=== PATIENT | male | born 1935 | race African-American/Black ===

== ENCOUNTER 2019-12-05 11:57 | Inpatient (IN) | payer MEDICARE, MEDICAID ==
[~2019-12-05] VITALS: Ht 188 cm; Wt 79.8 kg
[2019-12-05 13:05] LABS: HEMATOCRIT. 35.6 % (42.0-52.0); MEAN CORPUSCULAR HEMOGLOBIN 30.2 pg (28.0-32.0); MEAN CORPUSCULAR VOLUME 89.8 fL (80.0-94.0); MEAN PLATELET VOLUME 8.4 fl (7.4-10.4); PLATELET 162 x1000/uL (130-400); RED BLOOD CELL COUNT 3.97 mill/uL (4.7-6.1); RED CELL DISTRIBUTION WIDTH 14.6 % (11.6-14.6)
[2019-12-05 13:12] LABS: CHLORIDE 113 mEq/L (98-107)
[2019-12-05 13:28] LABS: INR 1.4; PROTHROMBIN TIME 14.6 sec (9.6-11.0)
[2019-12-05 14:00] LABS: PLATELET ESTIMATE NORMAL
[2019-12-05] MEDS ORDERED: SODIUM CHLORIDE 0.9% 1000ML BAG (SEPSIS BOLUS) IV ONE (14:15)
[2019-12-05] MEDS ORDERED: VANCOMYCIN 1 G PREMIX 200 ML IV ONE (14:15)
[2019-12-05] MEDS ORDERED: POTASSIUM CHLORIDE 20MEQ TABLET SR PO ONE (14:15)
[2019-12-05] MEDS ORDERED: PIPERACILLIN/TAZ 3.375G PREMIX 50 ML IV ONE (14:15)
[2019-12-05 14:44] LABS: CLARITY URINE TURBID (CLEAR); COLOR URINE DK YELLOW (YELLOW); KETONES URINE TRACE (NEGATIVE); LEUKOCYTE ESTERASE URINE 3+ (NEGATIVE); NITRITE URINE NEGATIVE (NEGATIVE); OCCULT BLOOD URINE 3+ (NEGATIVE); PH URINE 5.5 (4.5-8.0); PROTEIN URINE 3+ (NEGATIVE); SPECIFIC GRAVITY URINE 1.018 (1.005-1.030)
[2019-12-05 17:34] VITALS: BP 114/80
[2019-12-05 18:00] VITALS: BP 114/80
[2019-12-05] MEDS ORDERED: DEXTROSE 50% WATER 50ML SYRINGE IV PRN (19:00)
[2019-12-05 20:00] VITALS: BP 114/80
[2019-12-05] MEDS ORDERED: LEVOFLOXACIN 500MG PREMIX 100 ML IV SCH (20:00)
[2019-12-05] MEDS ORDERED: IPRATROPIUM/ALBUTEROL 0.5-3(2.5)MG/3ML NEB HHN SCH (20:00)
[2019-12-05] MEDS: BLOOD SUGAR DIAGNOSTIC STRIP TEST SCH (21:00)
[2019-12-05] MEDS: INSULIN LISPRO 100 UNITS/ML SUBCUT SCH (21:00)
[2019-12-05] MEDS: INSULIN GLARGINE UD 100 UNITS/ML SYR SUBCUT SCH (22:00)
[2019-12-06] VITALS (11 sets, daily range): BP systolic 87–123; BP diastolic 58–78
[2019-12-06] MEDS ORDERED: SODIUM CHLORIDE 0.45% 250 ML IV NR (00:30)
[2019-12-06] MEDS: SODIUM CHLORIDE 0.45% 1,000 ML IV SCH ×3 (02:52→21:03)
[2019-12-06] MEDS: BLOOD SUGAR DIAGNOSTIC STRIP TEST SCH ×4 (06:20→21:04)
[2019-12-06] MEDS: INSULIN LISPRO 100 UNITS/ML SUBCUT SCH ×4 (07:20→21:00)
[2019-12-06 07:57] LABS: HEMATOCRIT. 38.9 % (42.0-52.0); HEMOGLOBIN. 12.9 g/dL (14.0-18.0); MEAN CORPUSCULAR HEMOGLOBIN 29.8 pg (28.0-32.0); MEAN CORPUSCULAR VOLUME 90.1 fL (80.0-94.0); MEAN PLATELET VOLUME 9.2 fl (7.4-10.4); PLATELET 137 x1000/uL (130-400); RED BLOOD CELL COUNT 4.32 mill/uL (4.7-6.1); RED CELL DISTRIBUTION WIDTH 14.8 % (11.6-14.6)
[2019-12-06] MEDS: IPRATROPIUM/ALBUTEROL 0.5-3(2.5)MG/3ML NEB HHN SCH ×4 (08:30→21:40)
[2019-12-06] MEDS ORDERED: FUROSEMIDE 40MG/4ML VIAL IVP SCH (09:00)
[2019-12-06] MEDS ORDERED: POTASSIUM CHLORIDE 20MEQ TABLET SR PO SCH (09:00)
[2019-12-06] MEDS ORDERED: GENTAMICIN 80MG PREMIX 100 ML IV SCH (10:15)
[2019-12-06] MEDS: ENOXAPARIN 30MG/0.3ML SYR SUBCUT SCH (11:24)
[2019-12-06] MEDS ORDERED: GENTAMICIN 100MG PREMIX 50 ML IV SCH (12:00)
[2019-12-06] MEDS: SIMETHICONE 80MG TABLET CHEW PO SCH ×2 (12:11→16:19)
[2019-12-06 12:56] LABS: PLATELET ESTIMATE NORMAL
[2019-12-06] MEDS: LEVOFLOXACIN 250MG PREMIX 50 ML IV SCH (21:03)
[2019-12-06] MEDS: INSULIN GLARGINE UD 100 UNITS/ML SYR SUBCUT SCH (21:05)
[2019-12-07] VITALS (12 sets, daily range): BP systolic 103–130; BP diastolic 53–78
[2019-12-07] MEDS: INSULIN LISPRO 100 UNITS/ML SUBCUT SCH ×4 (06:00→21:00)
[2019-12-07] MEDS: BLOOD SUGAR DIAGNOSTIC STRIP TEST SCH ×4 (06:00→21:00)
[2019-12-07 07:02] LABS: GENTAMICIN RANDOM 1.9 ug/mL
[2019-12-07] MEDS: ENOXAPARIN 30MG/0.3ML SYR SUBCUT SCH (09:57)
[2019-12-07] MEDS: SIMETHICONE 80MG TABLET CHEW PO SCH ×3 (09:57→18:18)
[2019-12-07] MEDS ORDERED: BISMUTH SUBSALICYLATE 262 MG/15 ML-120ML BOTTLE PO NR (10:00)
[2019-12-07 10:27] LABS: HEMATOCRIT. 34.4 % (42.0-52.0); HEMOGLOBIN. 11.5 g/dL (14.0-18.0); MEAN CORPUSCULAR HEMOGLOBIN 29.8 pg (28.0-32.0); MEAN CORPUSCULAR VOLUME 89.4 fL (80.0-94.0); MEAN PLATELET VOLUME 9.3 fl (7.4-10.4); PLATELET 125 x1000/uL (130-400); RED BLOOD CELL COUNT 3.85 mill/uL (4.7-6.1); RED CELL DISTRIBUTION WIDTH 14.9 % (11.6-14.6)
[2019-12-07] MEDS ORDERED: GENTAMICIN 120MG PREMIX 100 ML IV SCH (12:00)
[2019-12-07] MEDS: IPRATROPIUM/ALBUTEROL 0.5-3(2.5)MG/3ML NEB HHN SCH ×3 (13:10→21:14)
[2019-12-07] MEDS: SODIUM CHLORIDE 0.45% 1,000 ML IV SCH ×2 (14:26→21:43)
[2019-12-07 14:33] LABS: PLATELET ESTIMATE SLIGHTLY DECREASED
[2019-12-07] MEDS ORDERED: BISMUTH SUBSALICYLATE 262 MG/15 ML-120ML BOTTLE PO PRN (20:00)
[2019-12-07] MEDS: LEVOFLOXACIN 250MG PREMIX 50 ML IV SCH (21:44)
[2019-12-07] MEDS: INSULIN GLARGINE UD 100 UNITS/ML SYR SUBCUT SCH (22:00)
[2019-12-08] VITALS (12 sets, daily range): BP systolic 118–164; BP diastolic 68–85
[2019-12-08] MEDS: IPRATROPIUM/ALBUTEROL 0.5-3(2.5)MG/3ML NEB HHN SCH ×6 (00:03→21:53)
[2019-12-08] MEDS: SODIUM CHLORIDE 0.45% 1,000 ML IV SCH ×2 (04:29→09:00)
[2019-12-08] MEDS: BLOOD SUGAR DIAGNOSTIC STRIP TEST SCH ×4 (06:50→20:51)
[2019-12-08] MEDS: INSULIN LISPRO 100 UNITS/ML SUBCUT SCH ×4 (06:58→21:09)
[2019-12-08] MEDS: ACETAMINOPHEN 650MG/20.3ML UDC PO PRN (06:59)
[2019-12-08] MEDS: SIMETHICONE 80MG TABLET CHEW PO SCH ×3 (08:59→17:13)
[2019-12-08] MEDS: ENOXAPARIN 30MG/0.3ML SYR SUBCUT SCH (08:59)
[2019-12-08] MEDS: CEFTRIAXONE 2 G in DEXTROSE 5% WATER 50 ML IV SCH (17:13)
[2019-12-08 18:06] LABS: HEMATOCRIT. 53.1 % (42.0-52.0); HEMOGLOBIN. 17.1 g/dL (14.0-18.0); MEAN CORPUSCULAR HEMOGLOBIN 29.1 pg (28.0-32.0); MEAN CORPUSCULAR VOLUME 90.3 fL (80.0-94.0); MEAN PLATELET VOLUME 8.5 fl (7.4-10.4); PLATELET 88 x1000/uL (130-400); RED BLOOD CELL COUNT 5.88 mill/uL (4.7-6.1); RED CELL DISTRIBUTION WIDTH 15.3 % (11.6-14.6)
[2019-12-08] MEDS ORDERED: LOPERAMIDE HCL 2MG CAPSULE PO NR (19:15)
[2019-12-08 19:17] LABS: PLATELET ESTIMATE DECREASED
[2019-12-08] MEDS ORDERED: MAGNESIUM/ALUMINUM HYDROXIDE/SIMETHICONE 30ML UDC PO PRN (19:45)
[2019-12-08] MEDS: FAMOTIDINE 20MG/2ML VIAL IV SCH (21:14)
[2019-12-08] MEDS: INSULIN GLARGINE UD 100 UNITS/ML SYR SUBCUT SCH (22:30)
[2019-12-09] VITALS (11 sets, daily range): BP systolic 129–156; BP diastolic 64–85
[2019-12-09] MEDS: SODIUM CHLORIDE 0.45% 1,000 ML IV SCH ×3 (00:46→21:01)
[2019-12-09] MEDS: BLOOD SUGAR DIAGNOSTIC STRIP TEST SCH ×4 (05:58→21:01)
[2019-12-09] MEDS: INSULIN LISPRO 100 UNITS/ML SUBCUT SCH ×4 (06:38→20:58)
[2019-12-09] MEDS: IPRATROPIUM/ALBUTEROL 0.5-3(2.5)MG/3ML NEB HHN SCH ×3 (08:42→16:57)
[2019-12-09] MEDS: ENOXAPARIN 30MG/0.3ML SYR SUBCUT SCH (11:10)
[2019-12-09] MEDS: SIMETHICONE 80MG TABLET CHEW PO SCH ×3 (11:10→16:39)
[2019-12-09] MEDS: ACETAMINOPHEN 650MG/20.3ML UDC PO PRN (13:57)
[2019-12-09] MEDS: CEFTRIAXONE 2 G in DEXTROSE 5% WATER 50 ML IV SCH (16:39)
[2019-12-09] MEDS ORDERED: IBUPROFEN 400MG TABLET PO PRN (20:00)
[2019-12-09] MEDS: FAMOTIDINE 20MG/2ML VIAL IV SCH (20:59)
[2019-12-09] MEDS: ACETAMINOPHEN WITH CODEINE 300/30MG TABLET PO PRN (21:00)
[2019-12-09] MEDS: INSULIN GLARGINE UD 100 UNITS/ML SYR SUBCUT SCH (22:49)
[2019-12-10] VITALS (12 sets, daily range): BP systolic 126–156; BP diastolic 61–89
[2019-12-10] MEDS: BLOOD SUGAR DIAGNOSTIC STRIP TEST SCH ×4 (05:57→20:58)
[2019-12-10] MEDS: SODIUM CHLORIDE 0.45% 1,000 ML IV SCH ×2 (05:57→15:32)
[2019-12-10] MEDS: ACETAMINOPHEN 650MG/20.3ML UDC PO PRN (06:26)
[2019-12-10 07:10] LABS: HEMATOCRIT. 35.4 % (42.0-52.0); HEMOGLOBIN. 11.8 g/dL (14.0-18.0); MEAN CORPUSCULAR HEMOGLOBIN 29.2 pg (28.0-32.0); MEAN CORPUSCULAR VOLUME 87.5 fL (80.0-94.0); MEAN PLATELET VOLUME 9.3 fl (7.4-10.4); PLATELET 149 x1000/uL (130-400); RED BLOOD CELL COUNT 4.04 mill/uL (4.7-6.1); RED CELL DISTRIBUTION WIDTH 14.9 % (11.6-14.6)
[2019-12-10] MEDS: INSULIN LISPRO 100 UNITS/ML SUBCUT SCH ×4 (08:07→20:58)
[2019-12-10] MEDS: SIMETHICONE 80MG TABLET CHEW PO SCH ×3 (08:13→18:42)
[2019-12-10] MEDS: ENOXAPARIN 30MG/0.3ML SYR SUBCUT SCH (08:14)
[2019-12-10] MEDS: IPRATROPIUM/ALBUTEROL 0.5-3(2.5)MG/3ML NEB HHN SCH ×4 (08:56→21:42)
[2019-12-10] MEDS: DIPHENHYDRAMINE 25MG CAPSULE PO PRN (15:31)
[2019-12-10] MEDS: CEFTRIAXONE 2 G in DEXTROSE 5% WATER 50 ML IV SCH (15:32)
[2019-12-10] MEDS ORDERED: METHYLPREDNISOLONE ACETATE 40MG/ML VIAL IM NR (16:14)
[2019-12-10] MEDS ORDERED: LIDOCAINE HCL 1% 20ML VIAL (Pyxis) INJ INFIL NR (16:15)
[2019-12-10 17:54] LABS: HEMATOCRIT. 37.3 % (42.0-52.0); HEMOGLOBIN. 12.3 g/dL (14.0-18.0); MEAN CORPUSCULAR HEMOGLOBIN 29.3 pg (28.0-32.0); MEAN CORPUSCULAR VOLUME 88.5 fL (80.0-94.0); MEAN PLATELET VOLUME 9.3 fl (7.4-10.4); PLATELET 162 x1000/uL (130-400); RED BLOOD CELL COUNT 4.21 mill/uL (4.7-6.1); RED CELL DISTRIBUTION WIDTH 15.1 % (11.6-14.6)
[2019-12-10] MEDS: FAMOTIDINE 20MG/2ML VIAL IV SCH (20:56)
[2019-12-10] MEDS: ACETAMINOPHEN WITH CODEINE 300/30MG TABLET PO PRN (20:57)
[2019-12-10] MEDS: INSULIN GLARGINE UD 100 UNITS/ML SYR SUBCUT SCH (20:58)
[2019-12-11] VITALS (12 sets, daily range): BP systolic 122–153; BP diastolic 59–82
[2019-12-11] MEDS: DIPHENHYDRAMINE 25MG CAPSULE PO PRN ×2 (01:17→08:59)
[2019-12-11] MEDS: SODIUM CHLORIDE 0.45% 1,000 ML IV SCH ×3 (01:18→21:06)
[2019-12-11] MEDS: BLOOD SUGAR DIAGNOSTIC STRIP TEST SCH ×4 (06:17→21:06)
[2019-12-11] MEDS: INSULIN LISPRO 100 UNITS/ML SUBCUT SCH ×4 (07:20→21:06)
[2019-12-11 08:05] LABS: PLATELET ESTIMATE NORMAL
[2019-12-11 08:26] LABS: PLATELET ESTIMATE NORMAL
[2019-12-11] MEDS: IPRATROPIUM/ALBUTEROL 0.5-3(2.5)MG/3ML NEB HHN SCH ×4 (08:35→21:21)
[2019-12-11] MEDS: SIMETHICONE 80MG TABLET CHEW PO SCH ×3 (08:59→16:52)
[2019-12-11] MEDS: ENOXAPARIN 30MG/0.3ML SYR SUBCUT SCH (08:59)
[2019-12-11 15:58] LABS: HEMATOCRIT. 37.5 % (42.0-52.0); HEMOGLOBIN. 12.5 g/dL (14.0-18.0); MEAN CORPUSCULAR HEMOGLOBIN 29.4 pg (28.0-32.0); MEAN PLATELET VOLUME 9.6 fl (7.4-10.4); PLATELET 152 x1000/uL (130-400); RED BLOOD CELL COUNT 4.26 mill/uL (4.7-6.1); RED CELL DISTRIBUTION WIDTH 15.2 % (11.6-14.6)
[2019-12-11] MEDS: COLCHICINE 0.6MG TABLET PO SCH (16:49)
[2019-12-11] MEDS: CEFTRIAXONE 2 G in DEXTROSE 5% WATER 50 ML IV SCH (16:49)
[2019-12-11] MEDS: CELECOXIB 100MG CAPSULE PO SCH (17:35)
[2019-12-11] MEDS: FAMOTIDINE 20MG/2ML VIAL IV SCH (21:05)
[2019-12-11] MEDS: INSULIN GLARGINE UD 100 UNITS/ML SYR SUBCUT SCH (21:07)
[2019-12-11 23:32] LABS: PLATELET ESTIMATE NORMAL
[2019-12-12] VITALS (12 sets, daily range): BP systolic 124–154; BP diastolic 50–91
[2019-12-12 06:18] LABS: HEMATOCRIT. 33.1 % (42.0-52.0); HEMOGLOBIN. 11.2 g/dL (14.0-18.0); MEAN CORPUSCULAR HEMOGLOBIN 29.4 pg (28.0-32.0); MEAN CORPUSCULAR VOLUME 87.4 fL (80.0-94.0); MEAN PLATELET VOLUME 8.6 fl (7.4-10.4); PLATELET 179 x1000/uL (130-400); RED BLOOD CELL COUNT 3.79 mill/uL (4.7-6.1); RED CELL DISTRIBUTION WIDTH 14.6 % (11.6-14.6)
[2019-12-12 06:37] LABS: CHLORIDE 111 mEq/L (98-107)
[2019-12-12] MEDS: BLOOD SUGAR DIAGNOSTIC STRIP TEST SCH ×4 (06:46→21:45)
[2019-12-12] MEDS: IPRATROPIUM/ALBUTEROL 0.5-3(2.5)MG/3ML NEB HHN SCH ×4 (09:25→20:53)
[2019-12-12] MEDS: ENOXAPARIN 30MG/0.3ML SYR SUBCUT SCH (10:31)
[2019-12-12] MEDS: COLCHICINE 0.6MG TABLET PO SCH (10:31)
[2019-12-12] MEDS: CELECOXIB 100MG CAPSULE PO SCH ×2 (10:31→16:41)
[2019-12-12] MEDS: SIMETHICONE 80MG TABLET CHEW PO SCH ×3 (10:31→19:59)
[2019-12-12] MEDS: INSULIN LISPRO 100 UNITS/ML SUBCUT SCH ×4 (10:34→21:52)
[2019-12-12] MEDS: SODIUM CHLORIDE 0.45% 1,000 ML IV SCH ×2 (10:36→19:59)
[2019-12-12 13:24] LABS: PLATELET ESTIMATE NORMAL
[2019-12-12] MEDS: CEFTRIAXONE 2 G in DEXTROSE 5% WATER 50 ML IV SCH (16:37)
[2019-12-12] MEDS: FAMOTIDINE 20MG/2ML VIAL IV SCH (21:40)
[2019-12-12] MEDS: INSULIN GLARGINE UD 100 UNITS/ML SYR SUBCUT SCH (21:53)
[2019-12-13] VITALS (12 sets, daily range): BP systolic 142–176; BP diastolic 58–103
[2019-12-13] MEDS ORDERED: CLONIDINE 0.1MG TABLET PO PRN (04:00)
[2019-12-13] MEDS: BLOOD SUGAR DIAGNOSTIC STRIP TEST SCH ×2 (05:46→12:16)
[2019-12-13] MEDS: SODIUM CHLORIDE 0.45% 1,000 ML IV SCH (05:47)
[2019-12-13] MEDS: INSULIN LISPRO 100 UNITS/ML SUBCUT SCH ×2 (07:20→12:39)
[2019-12-13] MEDS: IPRATROPIUM/ALBUTEROL 0.5-3(2.5)MG/3ML NEB HHN SCH ×2 (07:40→12:31)
[2019-12-13 09:06] LABS: ANGIOTENSION CONVERTING ENZYME 33 U/L (14-82)
[2019-12-13] MEDS: CELECOXIB 100MG CAPSULE PO SCH (09:52)
[2019-12-13] MEDS: SIMETHICONE 80MG TABLET CHEW PO SCH (09:52)
[2019-12-13] MEDS: COLCHICINE 0.6MG TABLET PO SCH (09:52)
[2019-12-13] MEDS: ENOXAPARIN 30MG/0.3ML SYR SUBCUT SCH (09:53)
[2019-12-13] MEDS ORDERED: LEVOFLOXACIN 500MG TABLET PO SCH (11:00)
[2019-12-13 17:06] LABS: ANA IFA Negative (.)
[2019-12-15] MEDS ORDERED: COLCHICINE 0.6MG TABLET PO SCH (09:00)
[2019-12-15] MEDS ORDERED: CELECOXIB 100MG CAPSULE PO SCH (09:00)
== END 2019-12-13 16:07 | disposition home or self-care (01) | DRG 871 ==
LOC: ER 11:57 → 3WST 14:50 → EDBEDREQ 15:00 → ENRESERV 15:03
PROVIDERS: ADMIT Specialist; ATTEND Specialist
PROC: 0S9D3ZZ Drainage of Left Knee Joint, Percutaneous Approach (ICD-10-PCS; principal; 2019-12-10)
PROC: 3E0U33Z Introduction of Anti-inflammatory into Joints, Percutaneous Approach (ICD-10-PCS; 2019-12-12)
PROC: 3E0U3BZ Introduction of Anesthetic Agent into Joints, Percutaneous Approach (ICD-10-PCS; 2019-12-12)
DX: A41.51 Sepsis due to Escherichia coli [E. coli] (principal); N17.0 Acute kidney failure with tubular necrosis; N39.0 Urinary tract infection, site not specified; G93.40 Encephalopathy, unspecified; D68.9 Coagulation defect, unspecified; E44.1 Mild protein-calorie malnutrition; J44.9 Chronic obstructive pulmonary disease, unspecified; E11.9 Type 2 diabetes mellitus without complications; E78.5 Hyperlipidemia, unspecified; R14.0 Abdominal distension (gaseous); J30.9 Allergic rhinitis, unspecified; I49.5 Sick sinus syndrome; K21.0 Gastro-esophageal reflux disease with esophagitis; E11.22 Type 2 diabetes mellitus with diabetic chronic kidney disease; E11.65 Type 2 diabetes mellitus with hyperglycemia; I13.10 Hypertensive heart and chronic kidney disease without heart failure, with stage 1 through stage 4 chronic kidney disease, or unspecified chronic kidney disease; K52.9 Noninfective gastroenteritis and colitis, unspecified; M11.262 Other chondrocalcinosis, left knee; N18.3 Chronic kidney disease, stage 3 (moderate); M11.862 Other specified crystal arthropathies, left knee; N40.0 Benign prostatic hyperplasia without lower urinary tract symptoms; R74.0 Nonspecific elevation of levels of transaminase and lactic acid dehydrogenase [LDH]; R91.1 Solitary pulmonary nodule; M19.90 Unspecified osteoarthritis, unspecified site; M51.37 Other intervertebral disc degeneration, lumbosacral region; Z95.0 Presence of cardiac pacemaker
CPT/HCPCS: 36415; 71045; 73562; 74018; 74176; 80048; 80053; 80061; 80076; 80170; 81003; 82164; 82962; 83036; 83605; 84145; 84550; 85025; 86256; 86431; 87077; 87186; 87493; 89060; 93005; 94640; 97116; 97162; 97166; 97530; 97535; 99291; J0696; J1030; J1580; J1650; J1815; J1956; J2543; J3370; J3490; J7030; J7060; Q0163

== ENCOUNTER 2020-12-17 10:39 | Inpatient (IN) | payer MEDICARE, MEDICAID ==
[~2020-12-17] VITALS: Ht 180.3 cm; Wt 94.8 kg
[2020-12-17] VITALS (24 sets, daily range): BP systolic 111–152; BP diastolic 43–75
[2020-12-17] MEDS ORDERED: LABETALOL 5MG/ML SYR 20 MG/4 ML SYRINGE IV ONE ×4 (11:00→11:30)
[2020-12-17] MEDS ORDERED: DEXAMETHASONE 10 MG/ML VIAL IV ONE (11:00)
[2020-12-17] MEDS ORDERED: PROPOFOL 10MG/ML 100ML 100 ML IV ONE ×2 (11:00→17:38)
[2020-12-17] MEDS ORDERED: SUCCINYLCHOLINE CHLORIDE 200MG/10ML IV ONE (11:00)
[2020-12-17] MEDS ORDERED: MANNITOL 20% (20GM/100ML) BAG 500ML PREMIX IV ONE ×2 (11:00→11:15)
[2020-12-17] MEDS ORDERED: ETOMIDATE 2MG/ML 10ML VIAL IV ONE ×2 (11:00→13:12)
[2020-12-17] MEDS ORDERED: LIDOCAINE HCL/EPINEPHRINE 1%-EPI 1:100,000 20 ML VIAL ONE ×2 (11:13→11:14)
[2020-12-17] MEDS ORDERED: THROMBIN (BOVINE) 5000 UNITS/VIAL TOP ONE (11:14)
[2020-12-17] MEDS ORDERED: BACITRACIN 15GM TUBE TOP ONE (11:14)
[2020-12-17] MEDS ORDERED: GENTAMICIN SULF 40MG/ML 2ML VIAL ONE (11:14)
[2020-12-17] MEDS ORDERED: LACTATED RINGERS 4,000 ML IV ONE (11:14)
[2020-12-17] MEDS ORDERED: MORPHINE SULFATE 4 MG/ML CPJ (NOT FOR IM USE) IV PRN (11:15)
[2020-12-17] MEDS ORDERED: MANNITOL 20% 250 ML IV NR (11:15)
[2020-12-17] MEDS ORDERED: MANNITOL 20% 500 ML IV NR (11:15)
[2020-12-17] MEDS ORDERED: NICARDIPINE 100 MG in SODIUM CHLORIDE 0.9% 60 ML IV PRN (11:15)
[2020-12-17] MEDS ORDERED: LABETALOL HCL 100 MG in DEXT 5% WATER 80 ML IV STA (11:19)
[2020-12-17 11:38] LABS: BG BASE EXCESS -3.8 mmol/L (-2.0-2.0); BG CARBOXYHEMOGLOBIN 0.4 % (0.5-1.5); BG DEOXYHEMOGLOBIN 0.8 % (0.0-5.0); BG FRACTION INSPIRED OXYGEN 40; BG METHEMOGLOBIN 0.2 % (0.0-1.5); BG OXYGEN SATURATION 99.2 % (92.0-98.5); BG OXYHEMOGLOBIN 98.6 % (94.0-97.0); BG PCO2 37.5 mmHg (35.0-45.0); BG PH 7.366 (7.350-7.450); BG PO2 184.1 mmHg (75.0-100.0); BG SAMPLE SITE LEFT RADIAL; BG TOTAL HEMOGLOBIN 13.8 g/dL (12.0-18.0); BG TOTAL RESPIRATORY RATE 24 b/min; BG VENT MODE VENT - AC
[2020-12-17] MEDS ORDERED: LABETALOL HCL 5MG/ML VIAL 20ML IV ONE (11:42)
[2020-12-17] MEDS ORDERED: LEVETIRACETAM 500MG PREMIX 100 ML IV SCH (11:45)
[2020-12-17] MEDS ORDERED: NALOXONE HCL 0.4MG/ML VIAL IV PRN (11:45)
[2020-12-17] MEDS ORDERED: NICARDIPINE 40MG/200ML PREMIX 200 ML IV ONE (11:49)
[2020-12-17] MEDS ORDERED: DEXAMETHASONE 4MG/ML 1ML VIAL ONE (12:18)
[2020-12-17] MEDS ORDERED: CEFAZOLIN SODIUM 1000MG/VIAL ONE (12:18)
[2020-12-17] MEDS ORDERED: ALBUMIN HUMAN 25GM/100ML (25%) IV ONE (12:28)
[2020-12-17] MEDS ORDERED: POTASSIUM CHLORIDE 40MEQ/20ML INJ IV ONE (12:31)
[2020-12-17] MEDS ORDERED: VASOPRESSIN 20 UNIT/ML 1ML ONE (12:48)
[2020-12-17] MEDS ORDERED: SODIUM CHLORIDE 0.9% 10ML VIAL ONE ×2 (12:48→13:12)
[2020-12-17 12:58] LABS: HEMATOCRIT. 28.9 % (42.0-52.0); HEMOGLOBIN. 9.9 g/dL (14.0-18.0); MEAN CORPUSCULAR HEMOGLOBIN 30.3 pg (28.0-32.0); MEAN PLATELET VOLUME 8.6 fl (7.4-10.4); PLATELET 134 x1000/uL (130-400); RED BLOOD CELL COUNT 3.28 mill/uL (4.7-6.1); RED CELL DISTRIBUTION WIDTH 14.6 % (11.6-14.6)
[2020-12-17 13:12] LABS: CHLORIDE 109 mEq/L (98-107)
[2020-12-17] MEDS ORDERED: VECURONIUM BROMIDE 10 MG/VIAL IV ONE (13:12)
[2020-12-17] MEDS ORDERED: ATROPINE SULFATE 1MG/10ML SYR ONE (13:12)
[2020-12-17 13:21] LABS: ETHANOL BLOOD < 10 mg/dL
[2020-12-17 13:24] LABS: LDL CHOLESTEROL 39 mg/dL (5-100)
[2020-12-17 13:39] LABS: NUCLEATED RED BLOOD CELLS 1 /100 WBC
[2020-12-17 13:40] LABS: PLATELET ESTIMATE NORMAL
[2020-12-17 13:46] LABS: INR 1.2; PROTHROMBIN TIME 12.9 sec (9.6-11.0)
[2020-12-17] MEDS ORDERED: CEFAZOLIN 1000MG PREMIX 50 ML IV SCH (14:00)
[2020-12-17] MEDS ORDERED: LABETALOL 5MG/ML SYR 20 MG/4 ML SYRINGE IV PRN ×2 (14:15→14:30)
[2020-12-17] MEDS ORDERED: ONDANSETRON HCL 4MG/2ML INJ IV PRN ×2 (14:15→14:30)
[2020-12-17] MEDS ORDERED: HYDROMORPHONE HCL/PF 2MG/ML CPJ IV PRN (14:15)
[2020-12-17] MEDS ORDERED: MEPERIDINE HCL/PF 25MG/ML CPJ IV PRN ×2 (14:15→14:30)
[2020-12-17] MEDS: PROPOFOL 10MG/ML 100ML 100 ML IV PRN ×2 (17:30→22:58)
[2020-12-17] MEDS: DEXT 5%/LACTATED RINGERS 1,000 ML IV SCH (18:00)
[2020-12-17 18:59] LABS: BG BASE EXCESS -3.7 mmol/L (-2.0-2.0); BG CARBOXYHEMOGLOBIN 0.3 % (0.5-1.5); BG DEOXYHEMOGLOBIN 0.6 % (0.0-5.0); BG FRACTION INSPIRED OXYGEN 100; BG HCO3 ACT 20.3 mmol/L (22.0-26.0); BG METHEMOGLOBIN 0.3 % (0.0-1.5); BG OXYGEN SATURATION 99.4 % (92.0-98.5); BG OXYHEMOGLOBIN 98.8 % (94.0-97.0); BG PCO2 33.5 mmHg (35.0-45.0); BG PH 7.401 (7.350-7.450); BG PO2 474.5 mmHg (75.0-100.0); BG SAMPLE SITE ALINE; BG TOTAL HEMOGLOBIN 11.7 g/dL (12.0-18.0); BG VENT MODE VENT - AC
[2020-12-17] MEDS ORDERED: DEXTROSE 50% WATER 50ML SYRINGE IV PRN (19:30)
[2020-12-17] MEDS: BLOOD SUGAR DIAGNOSTIC STRIP TEST SCH (19:30)
[2020-12-17] MEDS: INSULIN LISPRO 100 UNITS/ML SUBCUT SCH (19:30)
[2020-12-17] MEDS: CEFAZOLIN 1000MG PREMIX 50 ML IV SCH (20:43)
[2020-12-17] MEDS ORDERED: FAMOTIDINE 20MG TABLET PO SCH (21:00)
[2020-12-17 23:01] LABS: HEMOGLOBIN. 11.4 g/dL (14.0-18.0); MEAN CORPUSCULAR HEMOGLOBIN 29.8 pg (28.0-32.0); MEAN CORPUSCULAR VOLUME 89.1 fL (80.0-94.0); MEAN PLATELET VOLUME 8.6 fl (7.4-10.4); PLATELET 163 x1000/uL (130-400); RED BLOOD CELL COUNT 3.82 mill/uL (4.7-6.1)
[2020-12-17 23:22] LABS: PLATELET ESTIMATE NORMAL
[2020-12-18] VITALS (91 sets, daily range): BP systolic 105–146; BP diastolic 41–96
[2020-12-18] MEDS ORDERED: IPRATROPIUM/ALBUTEROL 0.5-3(2.5)MG/3ML NEB HHN SCH
[2020-12-18] MEDS: IPRATROPIUM/ALBUTEROL 0.5-3(2.5)MG/3ML NEB HHN SCH ×4 (01:35→20:33)
[2020-12-18] MEDS: BLOOD SUGAR DIAGNOSTIC STRIP TEST SCH ×5 (02:15→23:28)
[2020-12-18] MEDS: INSULIN LISPRO 100 UNITS/ML SUBCUT SCH ×5 (02:27→23:27)
[2020-12-18] MEDS: LEVETIRACETAM 500MG PREMIX 100 ML IV SCH ×2 (03:30→15:52)
[2020-12-18] MEDS: CEFAZOLIN 1000MG PREMIX 50 ML IV SCH ×3 (06:25→23:28)
[2020-12-18] MEDS: PROPOFOL 10MG/ML 100ML 100 ML IV PRN (06:26)
[2020-12-18] MEDS: DEXT 5%/LACTATED RINGERS 1,000 ML IV SCH ×2 (06:49→15:52)
[2020-12-18 08:50] LABS: BG BASE EXCESS -4.4 mmol/L (-2.0-2.0); BG CARBOXYHEMOGLOBIN 0.3 % (0.5-1.5); BG DEOXYHEMOGLOBIN 0.7 % (0.0-5.0); BG HCO3 ACT 19.5 mmol/L (22.0-26.0); BG METHEMOGLOBIN 0.2 % (0.0-1.5); BG OXYGEN SATURATION 99.3 % (92.0-98.5); BG OXYHEMOGLOBIN 98.8 % (94.0-97.0); BG PCO2 31.9 mmHg (35.0-45.0); BG PH 7.404 (7.350-7.450); BG PO2 256.3 mmHg (75.0-100.0); BG SAMPLE SITE ALINE; BG TOTAL HEMOGLOBIN 11.4 g/dL (12.0-18.0); BG TOTAL RESPIRATORY RATE 14 b/min; BG VENT MODE VENT - AC
[2020-12-18] MEDS ORDERED: INSULIN LISPRO 100 UNITS/ML SUBCUT SCH (12:00)
[2020-12-18] MEDS ORDERED: PROPOFOL 10MG/ML 100ML 100 ML IV PRN (12:15)
[2020-12-18] MEDS: PANTOPRAZOLE SODIUM 40 MG/VIAL IV SCH (12:29)
[2020-12-19] VITALS (93 sets, daily range): BP systolic 93–143; BP diastolic 35–70
[2020-12-19] MEDS: LEVETIRACETAM 500MG PREMIX 100 ML IV SCH ×2 (03:14→14:16)
[2020-12-19] MEDS: IPRATROPIUM/ALBUTEROL 0.5-3(2.5)MG/3ML NEB HHN SCH ×4 (04:25→20:33)
[2020-12-19] MEDS: INSULIN LISPRO 100 UNITS/ML SUBCUT SCH ×4 (05:43→22:58)
[2020-12-19] MEDS: DEXT 5%/LACTATED RINGERS 1,000 ML IV SCH ×2 (06:25→17:22)
[2020-12-19] MEDS: BLOOD SUGAR DIAGNOSTIC STRIP TEST SCH ×4 (06:25→22:59)
[2020-12-19] MEDS: PANTOPRAZOLE SODIUM 40 MG/VIAL IV SCH (08:52)
[2020-12-19] MEDS: CEFAZOLIN 1000MG PREMIX 50 ML IV SCH ×2 (08:52→14:49)
[2020-12-19] MEDS: NICARDIPINE 100 MG in SODIUM CHLORIDE 0.9% 60 ML IV PRN (08:53)
[2020-12-19 10:54] LABS: BG BASE EXCESS -5.5 mmol/L (-2.0-2.0); BG CARBOXYHEMOGLOBIN 0.3 % (0.5-1.5); BG DEOXYHEMOGLOBIN 0.7 % (0.0-5.0); BG FRACTION INSPIRED OXYGEN 35; BG HCO3 ACT 18.3 mmol/L (22.0-26.0); BG METHEMOGLOBIN 0.2 % (0.0-1.5); BG OXYGEN SATURATION 99.3 % (92.0-98.5); BG OXYHEMOGLOBIN 98.8 % (94.0-97.0); BG PCO2 30.3 mmHg (35.0-45.0); BG PH 7.398 (7.350-7.450); BG PO2 301.2 mmHg (75.0-100.0); BG SAMPLE SITE ALINE; BG TOTAL HEMOGLOBIN 11.5 g/dL (12.0-18.0); BG TOTAL RESPIRATORY RATE 20 b/min; BG VENT MODE VENT - AC
[2020-12-19 13:21] LABS: HEMATOCRIT. 32.5 % (42.0-52.0); HEMOGLOBIN. 10.9 g/dL (14.0-18.0); MEAN CORPUSCULAR HEMOGLOBIN 29.6 pg (28.0-32.0); MEAN CORPUSCULAR VOLUME 88.5 fL (80.0-94.0); MEAN PLATELET VOLUME 8.8 fl (7.4-10.4); PLATELET 161 x1000/uL (130-400); RED BLOOD CELL COUNT 3.67 mill/uL (4.7-6.1); RED CELL DISTRIBUTION WIDTH 15.4 % (11.6-14.6)
[2020-12-19 13:43] LABS: PHOSPHORUS 3.4 mg/dL (2.5-4.9)
[2020-12-19 13:51] LABS: PLATELET ESTIMATE NORMAL
[2020-12-19] MEDS ORDERED: INSULIN GLARGINE UD 100 UNITS/ML SYR SUBCUT SCH (22:00)
[2020-12-19] MEDS: INSULIN GLARGINE UD 100 UNITS/ML SYR SUBCUT SCH (22:58)
[2020-12-20] VITALS (96 sets, daily range): BP systolic 76–161; BP diastolic 32–79
[2020-12-20] MEDS ORDERED: MORPHINE SULFATE 4 MG/ML CPJ (NOT FOR IM USE) IV PRN (00:15)
[2020-12-20] MEDS: IPRATROPIUM/ALBUTEROL 0.5-3(2.5)MG/3ML NEB HHN SCH ×4 (01:14→20:13)
[2020-12-20] MEDS ORDERED: PROPOFOL 10MG/ML 100ML 100 ML IV PRN ×2 (01:15→11:45)
[2020-12-20] MEDS: LEVETIRACETAM 500MG PREMIX 100 ML IV SCH ×2 (02:29→13:54)
[2020-12-20 04:58] LABS: HEMATOCRIT. 33.5 % (42.0-52.0); HEMOGLOBIN. 11.4 g/dL (14.0-18.0); MEAN CORPUSCULAR VOLUME 87.8 fL (80.0-94.0); MEAN PLATELET VOLUME 9.1 fl (7.4-10.4); PLATELET 150 x1000/uL (130-400); RED BLOOD CELL COUNT 3.82 mill/uL (4.7-6.1); RED CELL DISTRIBUTION WIDTH 15.1 % (11.6-14.6)
[2020-12-20] MEDS: BLOOD SUGAR DIAGNOSTIC STRIP TEST SCH ×4 (05:27→23:00)
[2020-12-20] MEDS: INSULIN LISPRO 100 UNITS/ML SUBCUT SCH ×4 (05:31→22:59)
[2020-12-20] MEDS: DEXT 5%/LACTATED RINGERS 1,000 ML IV SCH ×2 (06:47→21:21)
[2020-12-20 07:07] LABS: PLATELET ESTIMATE NORMAL
[2020-12-20] MEDS: PANTOPRAZOLE SODIUM 40 MG/VIAL IV SCH (08:36)
[2020-12-20] MEDS ORDERED: KCL 20MEQ/100ML PREMIX 100 ML IV NR (11:00)
[2020-12-20] MEDS: PIPERACILLIN/TAZOBACTAM 3.375 G in DEXTROSE 5% WATER 50 ML IV SCH ×2 (13:00→20:03)
[2020-12-20 17:46] LABS: BG CARBOXYHEMOGLOBIN 0.3 % (0.5-1.5); BG DEOXYHEMOGLOBIN 4.3 % (0.0-5.0); BG FRACTION INSPIRED OXYGEN 30; BG HCO3 ACT 16.8 mmol/L (22.0-26.0); BG METHEMOGLOBIN 0.2 % (0.0-1.5); BG OXYGEN SATURATION 95.7 % (92.0-98.5); BG OXYHEMOGLOBIN 95.2 % (94.0-97.0); BG PCO2 25.4 mmHg (35.0-45.0); BG PH 7.438 (7.350-7.450); BG PO2 77.5 mmHg (75.0-100.0); BG SAMPLE SITE ALINE; BG TOTAL HEMOGLOBIN 11.2 g/dL (12.0-18.0); BG VENT MODE VENT - AC
[2020-12-20] MEDS: INSULIN GLARGINE UD 100 UNITS/ML SYR SUBCUT SCH (22:59)
[2020-12-21] VITALS (94 sets, daily range): BP systolic 92–148; BP diastolic 38–75
[2020-12-21] MEDS: IPRATROPIUM/ALBUTEROL 0.5-3(2.5)MG/3ML NEB HHN SCH ×4 (00:22→20:55)
[2020-12-21] MEDS: LEVETIRACETAM 500MG PREMIX 100 ML IV SCH ×2 (03:05→15:09)
[2020-12-21] MEDS: BLOOD SUGAR DIAGNOSTIC STRIP TEST SCH ×3 (05:12→17:18)
[2020-12-21] MEDS: INSULIN LISPRO 100 UNITS/ML SUBCUT SCH ×2 (05:17→17:21)
[2020-12-21 05:36] LABS: HEMATOCRIT. 27.6 % (42.0-52.0); HEMOGLOBIN. 9.3 g/dL (14.0-18.0); MEAN CORPUSCULAR HEMOGLOBIN 29.9 pg (28.0-32.0); MEAN CORPUSCULAR VOLUME 88.6 fL (80.0-94.0); MEAN PLATELET VOLUME 9.9 fl (7.4-10.4); PLATELET 116 x1000/uL (130-400); RED BLOOD CELL COUNT 3.11 mill/uL (4.7-6.1); RED CELL DISTRIBUTION WIDTH 15.5 % (11.6-14.6)
[2020-12-21] MEDS: PANTOPRAZOLE SODIUM 40 MG/VIAL IV SCH (08:07)
[2020-12-21] MEDS: PIPERACILLIN/TAZOBACTAM 3.375 G in DEXTROSE 5% WATER 50 ML IV SCH ×2 (08:07→21:04)
[2020-12-21 08:28] LABS: BG BASE EXCESS -9.2 mmol/L (-2.0-2.0); BG CARBOXYHEMOGLOBIN 0.3 % (0.5-1.5); BG DEOXYHEMOGLOBIN 2.4 % (0.0-5.0); BG HCO3 ACT 14.3 mmol/L (22.0-26.0); BG METHEMOGLOBIN 0.2 % (0.0-1.5); BG OXYGEN SATURATION 97.6 % (92.0-98.5); BG OXYHEMOGLOBIN 97.1 % (94.0-97.0); BG PCO2 24.1 mmHg (35.0-45.0); BG PH 7.392 (7.350-7.450); BG PO2 101.5 mmHg (75.0-100.0); BG SAMPLE SITE ALINE; BG TOTAL HEMOGLOBIN 9.5 g/dL (12.0-18.0); BG VENT MODE VENT - AC
[2020-12-21] MEDS ORDERED: MAGNESIUM 1 G PREMIX 100 ML IV SCH (10:00)
[2020-12-21] MEDS ORDERED: HYDRALAZINE 20MG/ML VIAL IV PRN (10:30)
[2020-12-21] MEDS ORDERED: PROPOFOL 10MG/ML 100ML 100 ML IV PRN (11:46)
[2020-12-21] MEDS ORDERED: INSULIN LISPRO 100 UNITS/ML SUBCUT SCH (12:00)
[2020-12-21 12:08] LABS: PLATELET ESTIMATE DECREASED
[2020-12-21] MEDS: DEXT 5%/LACTATED RINGERS 1,000 ML IV SCH (15:08)
[2020-12-21] MEDS: INSULIN GLARGINE UD 100 UNITS/ML SYR SUBCUT SCH (23:00)
[2020-12-22] VITALS (92 sets, daily range): BP systolic 10–176; BP diastolic 10–92
[2020-12-22] MEDS: BLOOD SUGAR DIAGNOSTIC STRIP TEST SCH ×4 (00:09→17:43)
[2020-12-22] MEDS: INSULIN LISPRO 100 UNITS/ML SUBCUT SCH ×4 (00:09→17:42)
[2020-12-22] MEDS: LEVETIRACETAM 500MG PREMIX 100 ML IV SCH ×2 (03:00→15:47)
[2020-12-22] MEDS: IPRATROPIUM/ALBUTEROL 0.5-3(2.5)MG/3ML NEB HHN SCH ×3 (03:05→20:27)
[2020-12-22] MEDS: DEXT 5%/LACTATED RINGERS 1,000 ML IV SCH ×2 (04:58→13:12)
[2020-12-22 05:17] LABS: HEMATOCRIT. 25.9 % (42.0-52.0); HEMOGLOBIN. 8.8 g/dL (14.0-18.0); MEAN CORPUSCULAR HEMOGLOBIN 29.9 pg (28.0-32.0); MEAN CORPUSCULAR VOLUME 87.7 fL (80.0-94.0); MEAN PLATELET VOLUME 9.7 fl (7.4-10.4); PLATELET 120 x1000/uL (130-400); RED BLOOD CELL COUNT 2.95 mill/uL (4.7-6.1); RED CELL DISTRIBUTION WIDTH 15.9 % (11.6-14.6)
[2020-12-22 05:28] LABS: PHOSPHORUS 4.2 mg/dL (2.5-4.9)
[2020-12-22] MEDS: PANTOPRAZOLE SODIUM 40 MG/VIAL IV SCH (09:21)
[2020-12-22] MEDS: PIPERACILLIN/TAZOBACTAM 3.375 G in DEXTROSE 5% WATER 50 ML IV SCH ×2 (09:21→20:38)
[2020-12-22 10:18] LABS: BG BASE EXCESS -8.6 mmol/L (-2.0-2.0); BG CARBOXYHEMOGLOBIN 0.3 % (0.5-1.5); BG DEOXYHEMOGLOBIN 2.3 % (0.0-5.0); BG FRACTION INSPIRED OXYGEN 30; BG HCO3 ACT 15.8 mmol/L (22.0-26.0); BG METHEMOGLOBIN 0.3 % (0.0-1.5); BG OXYGEN SATURATION 97.7 % (92.0-98.5); BG OXYHEMOGLOBIN 97.1 % (94.0-97.0); BG PCO2 28.2 mmHg (35.0-45.0); BG PH 7.365 (7.350-7.450); BG PO2 100.4 mmHg (75.0-100.0); BG SAMPLE SITE ALINE; BG TOTAL HEMOGLOBIN 8.8 g/dL (12.0-18.0); BG VENT MODE VENT - AC
[2020-12-22 14:08] LABS: PLATELET ESTIMATE SLIGHTLY DECREASED
[2020-12-22] MEDS ORDERED: FUROSEMIDE 100MG/10ML VIAL IVP SCH (14:15)
[2020-12-22] MEDS: NICARDIPINE 100 MG in SODIUM CHLORIDE 0.9% 60 ML IV PRN (21:27)
[2020-12-22] MEDS: INSULIN GLARGINE UD 100 UNITS/ML SYR SUBCUT SCH (22:25)
[2020-12-22] MEDS: MORPHINE SULFATE 4 MG/ML CPJ (NOT FOR IM USE) IV PRN (22:45)
[2020-12-22] MEDS: PROPOFOL 10MG/ML 100ML 100 ML IV PRN (22:48)
[2020-12-23] VITALS (96 sets, daily range): BP systolic 110–152; BP diastolic 44–72
[2020-12-23] MEDS: IPRATROPIUM/ALBUTEROL 0.5-3(2.5)MG/3ML NEB HHN SCH ×5 (00:27→20:28)
[2020-12-23] MEDS: INSULIN LISPRO 100 UNITS/ML SUBCUT SCH ×5 (00:41→23:23)
[2020-12-23] MEDS: LEVETIRACETAM 500MG PREMIX 100 ML IV SCH ×2 (02:33→15:28)
[2020-12-23] MEDS: DEXT 5%/LACTATED RINGERS 1,000 ML IV SCH (02:33)
[2020-12-23] MEDS: PROPOFOL 10MG/ML 100ML 100 ML IV PRN ×4 (02:33→19:55)
[2020-12-23] MEDS: MORPHINE SULFATE 4 MG/ML CPJ (NOT FOR IM USE) IV PRN ×3 (02:53→23:24)
[2020-12-23] MEDS: NICARDIPINE 100 MG in SODIUM CHLORIDE 0.9% 60 ML IV PRN (04:34)
[2020-12-23 04:57] LABS: HEMATOCRIT. 27.7 % (42.0-52.0); HEMOGLOBIN. 9.2 g/dL (14.0-18.0); MEAN CORPUSCULAR HEMOGLOBIN 29.8 pg (28.0-32.0); MEAN CORPUSCULAR VOLUME 89.6 fL (80.0-94.0); MEAN PLATELET VOLUME 9.6 fl (7.4-10.4); PLATELET 135 x1000/uL (130-400); RED BLOOD CELL COUNT 3.09 mill/uL (4.7-6.1); RED CELL DISTRIBUTION WIDTH 15.9 % (11.6-14.6)
[2020-12-23] MEDS: BLOOD SUGAR DIAGNOSTIC STRIP TEST SCH ×5 (05:35→23:23)
[2020-12-23] MEDS: PIPERACILLIN/TAZOBACTAM 3.375 G in DEXTROSE 5% WATER 50 ML IV SCH ×2 (08:04→20:05)
[2020-12-23] MEDS: PANTOPRAZOLE SODIUM 40 MG/VIAL IV SCH (08:04)
[2020-12-23] MEDS: SODIUM CHLORIDE 0.45% 1,000 ML IV SCH (12:08)
[2020-12-23 14:42] LABS: PLATELET ESTIMATE NORMAL
[2020-12-23] MEDS: INSULIN GLARGINE UD 100 UNITS/ML SYR SUBCUT SCH (22:00)
[2020-12-24] VITALS (100 sets, daily range): BP systolic 137–190; BP diastolic 62–89
[2020-12-24] MEDS: IPRATROPIUM/ALBUTEROL 0.5-3(2.5)MG/3ML NEB HHN SCH ×4 (00:09→20:06)
[2020-12-24] MEDS: LEVETIRACETAM 500MG PREMIX 100 ML IV SCH ×2 (02:01→15:20)
[2020-12-24 05:07] LABS: HEMATOCRIT. 28.1 % (42.0-52.0); HEMOGLOBIN. 9.2 g/dL (14.0-18.0); MEAN CORPUSCULAR HEMOGLOBIN 29.4 pg (28.0-32.0); MEAN CORPUSCULAR VOLUME 89.6 fL (80.0-94.0); MEAN PLATELET VOLUME 9.1 fl (7.4-10.4); PLATELET 136 x1000/uL (130-400); RED BLOOD CELL COUNT 3.14 mill/uL (4.7-6.1); RED CELL DISTRIBUTION WIDTH 16.3 % (11.6-14.6)
[2020-12-24] MEDS: BLOOD SUGAR DIAGNOSTIC STRIP TEST SCH ×3 (06:00→17:54)
[2020-12-24] MEDS: INSULIN LISPRO 100 UNITS/ML SUBCUT SCH ×3 (06:00→17:54)
[2020-12-24] MEDS: SODIUM CHLORIDE 0.45% 1,000 ML IV SCH (09:03)
[2020-12-24] MEDS: PANTOPRAZOLE SODIUM 40 MG/VIAL IV SCH (09:09)
[2020-12-24] MEDS: PIPERACILLIN/TAZOBACTAM 3.375 G in DEXTROSE 5% WATER 50 ML IV SCH ×2 (09:09→20:15)
[2020-12-24] MEDS: MORPHINE SULFATE 4 MG/ML CPJ (NOT FOR IM USE) IV PRN ×5 (09:12→23:58)
[2020-12-24] MEDS ORDERED: FUROSEMIDE 40MG/4ML VIAL IVP SCH (09:30)
[2020-12-24 10:41] LABS: PLATELET ESTIMATE NORMAL
[2020-12-24] MEDS: HYDRALAZINE 20MG/ML VIAL IV PRN (20:16)
[2020-12-24] MEDS: NICARDIPINE 100 MG in SODIUM CHLORIDE 0.9% 60 ML IV PRN (22:00)
[2020-12-24] MEDS: INSULIN GLARGINE UD 100 UNITS/ML SYR SUBCUT SCH (22:00)
[2020-12-25] VITALS (86 sets, daily range): BP systolic 106–155; BP diastolic 54–104
[2020-12-25] MEDS: INSULIN LISPRO 100 UNITS/ML SUBCUT SCH ×5 (00:06→23:29)
[2020-12-25] MEDS: BLOOD SUGAR DIAGNOSTIC STRIP TEST SCH ×5 (00:06→23:29)
[2020-12-25] MEDS: HYDRALAZINE 20MG/ML VIAL IV PRN ×3 (02:00→15:26)
[2020-12-25] MEDS: LEVETIRACETAM 500MG PREMIX 100 ML IV SCH ×2 (02:09→14:36)
[2020-12-25] MEDS: IPRATROPIUM/ALBUTEROL 0.5-3(2.5)MG/3ML NEB HHN SCH ×4 (02:14→20:28)
[2020-12-25] MEDS: SODIUM CHLORIDE 0.45% 1,000 ML IV SCH (02:15)
[2020-12-25] MEDS: NICARDIPINE 100 MG in SODIUM CHLORIDE 0.9% 60 ML IV PRN (03:22)
[2020-12-25] MEDS: MORPHINE SULFATE 4 MG/ML CPJ (NOT FOR IM USE) IV PRN ×2 (03:38→08:40)
[2020-12-25 05:47] LABS: HEMOGLOBIN. 9.9 g/dL (14.0-18.0); MEAN CORPUSCULAR HEMOGLOBIN 29.3 pg (28.0-32.0); MEAN CORPUSCULAR VOLUME 88.6 fL (80.0-94.0); MEAN PLATELET VOLUME 9.2 fl (7.4-10.4); PLATELET 143 x1000/uL (130-400); RED BLOOD CELL COUNT 3.38 mill/uL (4.7-6.1); RED CELL DISTRIBUTION WIDTH 16.3 % (11.6-14.6)
[2020-12-25 05:54] LABS: PHOSPHORUS 7.4 mg/dL (2.5-4.9)
[2020-12-25 07:44] LABS: BG BASE EXCESS -9.3 mmol/L (-2.0-2.0); BG CARBOXYHEMOGLOBIN 0.3 % (0.5-1.5); BG DEOXYHEMOGLOBIN 2.4 % (0.0-5.0); BG HCO3 ACT 16.6 mmol/L (22.0-26.0); BG METHEMOGLOBIN 0.3 % (0.0-1.5); BG OXYGEN SATURATION 97.6 % (92.0-98.5); BG PCO2 35.9 mmHg (35.0-45.0); BG PH 7.282 (7.350-7.450); BG PO2 104.1 mmHg (75.0-100.0); BG SAMPLE SITE RIGHT RADIAL; BG TOTAL HEMOGLOBIN 10.3 g/dL (12.0-18.0); BG VENT MODE VENT - AC
[2020-12-25] MEDS: PANTOPRAZOLE SODIUM 40 MG/VIAL IV SCH (08:13)
[2020-12-25] MEDS: PIPERACILLIN/TAZOBACTAM 3.375 G in DEXTROSE 5% WATER 50 ML IV SCH (08:13)
[2020-12-25] MEDS: DEXTROSE 5% WATER 1,000 ML IV SCH ×2 (09:27→23:28)
[2020-12-25] MEDS ORDERED: CLONIDINE HCL 0.2MG/24HR PATCH TD NR (10:00)
[2020-12-25 11:52] LABS: PLATELET ESTIMATE NORMAL
[2020-12-25] MEDS: METOCLOPRAMIDE HCL 10MG/2ML VIAL IV SCH ×2 (14:36→21:15)
[2020-12-25] MEDS: INSULIN GLARGINE UD 100 UNITS/ML SYR SUBCUT SCH (21:15)
[2020-12-26] VITALS (82 sets, daily range): BP systolic 122–175; BP diastolic 60–88
[2020-12-26] MEDS: IPRATROPIUM/ALBUTEROL 0.5-3(2.5)MG/3ML NEB HHN SCH ×4 (00:22→20:43)
[2020-12-26] MEDS: LEVETIRACETAM 500MG PREMIX 100 ML IV SCH ×2 (02:27→15:00)
[2020-12-26 05:41] LABS: HEMATOCRIT. 28.9 % (42.0-52.0); HEMOGLOBIN. 9.5 g/dL (14.0-18.0); MEAN CORPUSCULAR HEMOGLOBIN 29.3 pg (28.0-32.0); MEAN CORPUSCULAR VOLUME 88.8 fL (80.0-94.0); MEAN PLATELET VOLUME 9.3 fl (7.4-10.4); PLATELET 148 x1000/uL (130-400); RED BLOOD CELL COUNT 3.26 mill/uL (4.7-6.1); RED CELL DISTRIBUTION WIDTH 16.4 % (11.6-14.6)
[2020-12-26] MEDS: BLOOD SUGAR DIAGNOSTIC STRIP TEST SCH ×3 (05:57→17:16)
[2020-12-26] MEDS: INSULIN LISPRO 100 UNITS/ML SUBCUT SCH ×4 (06:01→18:25)
[2020-12-26] MEDS: METOCLOPRAMIDE HCL 10MG/2ML VIAL IV SCH ×3 (06:01→22:32)
[2020-12-26] MEDS ORDERED: FUROSEMIDE 40MG/4ML VIAL IVP NR (09:00)
[2020-12-26] MEDS: PANTOPRAZOLE SODIUM 40 MG/VIAL IV SCH (09:08)
[2020-12-26] MEDS: HYDRALAZINE 20MG/ML VIAL IV PRN (09:14)
[2020-12-26] MEDS: DEXTROSE 5% WATER 1,000 ML IV SCH ×2 (11:36→22:33)
[2020-12-26 12:46] LABS: PLATELET ESTIMATE NORMAL
[2020-12-26] MEDS: INSULIN GLARGINE UD 100 UNITS/ML SYR SUBCUT SCH (22:32)
[2020-12-27] VITALS (74 sets, daily range): BP systolic 124–183; BP diastolic 60–101
[2020-12-27] MEDS: IPRATROPIUM/ALBUTEROL 0.5-3(2.5)MG/3ML NEB HHN SCH ×4 (01:09→20:38)
[2020-12-27] MEDS: INSULIN LISPRO 100 UNITS/ML SUBCUT SCH ×4 (01:21→18:30)
[2020-12-27] MEDS: HYDRALAZINE 20MG/ML VIAL IV PRN (01:25)
[2020-12-27] MEDS: LEVETIRACETAM 500MG PREMIX 100 ML IV SCH ×2 (05:07→15:24)
[2020-12-27 05:35] LABS: HEMATOCRIT. 30.9 % (42.0-52.0); HEMOGLOBIN. 10.2 g/dL (14.0-18.0); MEAN CORPUSCULAR HEMOGLOBIN 29.2 pg (28.0-32.0); MEAN CORPUSCULAR VOLUME 88.6 fL (80.0-94.0); MEAN PLATELET VOLUME 9.2 fl (7.4-10.4); PLATELET 149 x1000/uL (130-400); RED BLOOD CELL COUNT 3.49 mill/uL (4.7-6.1); RED CELL DISTRIBUTION WIDTH 16.2 % (11.6-14.6)
[2020-12-27] MEDS: BLOOD SUGAR DIAGNOSTIC STRIP TEST SCH ×4 (05:53→18:24)
[2020-12-27] MEDS: METOCLOPRAMIDE HCL 10MG/2ML VIAL IV SCH ×3 (06:03→21:08)
[2020-12-27 09:16] LABS: PLATELET ESTIMATE NORMAL
[2020-12-27] MEDS: PANTOPRAZOLE SODIUM 40 MG/VIAL IV SCH (09:42)
[2020-12-27 09:59] LABS: BG BASE EXCESS -7.1 mmol/L (-2.0-2.0); BG CARBOXYHEMOGLOBIN 0.3 % (0.5-1.5); BG FRACTION INSPIRED OXYGEN 30; BG HCO3 ACT 18.7 mmol/L (22.0-26.0); BG METHEMOGLOBIN 0.3 % (0.0-1.5); BG OXYHEMOGLOBIN 97.4 % (94.0-97.0); BG PCO2 38.4 mmHg (35.0-45.0); BG PH 7.305 (7.350-7.450); BG PO2 116.2 mmHg (75.0-100.0); BG SAMPLE SITE RIGHT RADIAL; BG TOTAL HEMOGLOBIN 10.8 g/dL (12.0-18.0); BG VENT MODE VENT - AC
[2020-12-27] MEDS: DEXTROSE 5% WATER 1,000 ML IV SCH (10:30)
[2020-12-27] MEDS: INSULIN GLARGINE UD 100 UNITS/ML SYR SUBCUT SCH (21:08)
[2020-12-28] VITALS (63 sets, daily range): BP systolic 72–182; BP diastolic 32–101
[2020-12-28] MEDS: IPRATROPIUM/ALBUTEROL 0.5-3(2.5)MG/3ML NEB HHN SCH (00:08)
[2020-12-28] MEDS: INSULIN LISPRO 100 UNITS/ML SUBCUT SCH ×3 (00:50→11:40)
[2020-12-28] MEDS: BLOOD SUGAR DIAGNOSTIC STRIP TEST SCH ×3 (00:50→11:38)
[2020-12-28] MEDS: DEXTROSE 5% WATER 1,000 ML IV SCH ×2 (00:50→05:53)
[2020-12-28] MEDS: LEVETIRACETAM 500MG PREMIX 100 ML IV SCH (05:52)
[2020-12-28] MEDS: METOCLOPRAMIDE HCL 10MG/2ML VIAL IV SCH (05:52)
[2020-12-28] MEDS: PANTOPRAZOLE SODIUM 40 MG/VIAL IV SCH (08:01)
[2020-12-28] MEDS: HYDRALAZINE 20MG/ML VIAL IV PRN (08:42)
[2020-12-28] MEDS ORDERED: MORPHINE SULFATE 250 MG in DEXT 5% WATER 240 ML IV PRN (12:00)
[2020-12-28] MEDS ORDERED: LORAZEPAM 2MG/ML CPJ IV NR (16:15)
[2020-12-28] MEDS ORDERED: MORPHINE SULFATE 250 MG in DEXT 5% WATER 225 ML IV PRN (18:00)
== END 2020-12-28 19:26 | DRG 20 ==
LOC: ER 10:52 → MICUSO 11:53 → EDBEDREQ 11:57 → EDBEDREQSVC 11:57 → ER 12:02 → MICUSO 18:39 → MICUNO 21:25
PROVIDERS: ADMIT Specialist; ATTEND Specialist
PROC: 00C70ZZ Extirpation of Matter from Cerebral Hemisphere, Open Approach (ICD-10-PCS; principal; 2020-12-17)
PROC: 0NR00JZ Replacement of Skull with Synthetic Substitute, Open Approach (ICD-10-PCS; 2020-12-17)
PROC: 00U207Z Supplement Dura Mater with Autologous Tissue Substitute, Open Approach (ICD-10-PCS; 2020-12-17)
PROC: 00H632Z Insertion of Monitoring Device into Cerebral Ventricle, Percutaneous Approach (ICD-10-PCS; 2020-12-17)
PROC: 4A103BD Monitoring of Intracranial Pressure, Percutaneous Approach (ICD-10-PCS; 2020-12-17)
PROC: 0BH17EZ Insertion of Endotracheal Airway into Trachea, Via Natural or Artificial Opening (ICD-10-PCS; 2020-12-17)
PROC: 5A1955Z Respiratory Ventilation, Greater than 96 Consecutive Hours (ICD-10-PCS; 2020-12-17)
PROC: 03BG0ZZ Excision of Intracranial Artery, Open Approach (ICD-10-PCS; 2020-12-17)
DX: I61.5 Nontraumatic intracerebral hemorrhage, intraventricular (principal); N17.0 Acute kidney failure with tubular necrosis; J69.0 Pneumonitis due to inhalation of food and vomit; Q28.2 Arteriovenous malformation of cerebral vessels; J96.01 Acute respiratory failure with hypoxia; E44.0 Moderate protein-calorie malnutrition; I16.1 Hypertensive emergency; G93.40 Encephalopathy, unspecified; E87.0 Hyperosmolality and hypernatremia; G91.9 Hydrocephalus, unspecified; K56.7 Ileus, unspecified; K92.2 Gastrointestinal hemorrhage, unspecified; I13.11 Hypertensive heart and chronic kidney disease without heart failure, with stage 5 chronic kidney disease, or end stage renal disease; Q27.30 Arteriovenous malformation, site unspecified; Z66 Do not resuscitate; D64.9 Anemia, unspecified; E11.65 Type 2 diabetes mellitus with hyperglycemia; E87.6 Hypokalemia; E78.5 Hyperlipidemia, unspecified; E11.22 Type 2 diabetes mellitus with diabetic chronic kidney disease; E11.43 Type 2 diabetes mellitus with diabetic autonomic (poly)neuropathy; E11.51 Type 2 diabetes mellitus with diabetic peripheral angiopathy without gangrene; E83.42 Hypomagnesemia; G93.89 Other specified disorders of brain; D70.9 Neutropenia, unspecified; I16.0 Hypertensive urgency; I87.2 Venous insufficiency (chronic) (peripheral); I61.4 Nontraumatic intracerebral hemorrhage in cerebellum; I87.8 Other specified disorders of veins; I49.5 Sick sinus syndrome; K31.84 Gastroparesis; Z20.822 Contact with and (suspected) exposure to COVID-19; M19.90 Unspecified osteoarthritis, unspecified site; N40.0 Benign prostatic hyperplasia without lower urinary tract symptoms; Z51.5 Encounter for palliative care; Z79.84 Long term (current) use of oral hypoglycemic drugs; Z95.0 Presence of cardiac pacemaker; Z68.29 Body mass index [BMI] 29.0-29.9, adult; N18.31 Chronic kidney disease, stage 3a; I49.9 Cardiac arrhythmia, unspecified
CPT/HCPCS: 36415; 36600; 71045; 80048; 80053; 80320; 82375; 82550; 82805; 82962; 83036; 83605; 83721; 83735; 84100; 84145; 84478; 84484; 85025; 86850; 86900; 87426; 88304; 93005; 94002; 94003; 94640; 99291; C1713; C1758; C9113; J0360; J0461; J0690; J1100; J1580; J1815; J1940; J1953; J2060; J2270; J2274; J2543; J2704; J2765; J3475; J3480; J3490; J7050; J7060; J7070; J7120; J7121; P9047; G0480